=== PATIENT | male | born 1945 | race Caucasian/White ===

== ENCOUNTER 2018-02-11 12:53 | Day surgery (SDC) | payer MEDICARE, OTHER, SELFPAY ==
[2018-02-01 15:29] VITALS: BMI 37.3
[2018-02-11] VITALS (9 sets, daily range): BP systolic 98–129; BP diastolic 62–82; PULSE 59–70; RESP 12–18; TEMP 36.1–36.3; O2SAT 92–98; BMI 35.9
[2018-02-11] MEDS: LACTATED RINGERS 1,000 ML 42 ML IV (13:39)
[2018-02-11] MEDS: CEFAZOLIN 2 GM/100 ML FROZ.PIGGY IV (14:00)
--- NOTE | 2018-02-11 14:12 | PM.PREOP ---
Pre-operative Note Interval Note Pre-op Check: Yes History & Physical Reviewed by Physician Changes: No
--- NOTE | 2018-02-11 14:31 | SUR.OPER ---
Supine on padded OR bed, head on pillow, arms secured on padded arm boards at <90 degrees abduction, legs uncrossed, safety belt at thigh, tape over blanket over lower legs.
[2018-02-11] MEDS: LIDOCAINE 1% W/EPI INJ 20 ML INJ (14:42)
[2018-02-11] MEDS: BUPIVACAINE 0.5% (PF) VIAL 30 ML INJ (14:44)
--- NOTE | 2018-02-11 15:12 | PM.OP.1 ---
Operative Date/Time/Diagnoses Date of procedure: 02/11/18 Time of procedure: 15:12 Pre-op diagnosis: Ventral hernia Post-op diagnosis: same Procedure & Clinicians Procedure: Ventral hernia repair with C-qur mesh implant Same procedure as scheduled: Yes Indications: Enlarging and painful ventral hernia. Surgeon: Haritha Alexandra Click Yes if Unassisted: Yes Anesthesia Type: General (Kotlarczyk) Operative Notes Findings: Three 1 cm fascial defect in a 5 x 4 cm area of ventral fascia beginning at the level of the umbilicus Closure Type: primary Specimen(s): none sent Implants & Drains: 8 cm C cur mesh implant Estimated Blood Loss (mL): 5 Blood products transfused: none Procedure in detail: After obtaining informed consent, the patient brought to the operating room and placed in supine position on the operating table. Following successful induction of general endotracheal anesthesia, appropriate padding of all bony prominences, and placement of appropriate monitors, the abdomen is prepped and draped in the standard surgical fashion. A time-out was held per [facility] protocol. Following infiltration with local anesthetic to create a field block, an incision was created superior to the umbilicus and carried down through the skin and subcutaneous tissue. We immediately encountered a hernia sac. This was carefully dissected free from surrounding structures and the opening into the fascia was identified. Palpation of this defect revealed a 2nd defect superiorly and to the right lateral side and a 3rd defect inferiorly in relationship to the central defect. All 3 defects were approximately 1/2 to 1 cm in greatest dimension. All the edges of the defects were defined. The preperitoneal fat was dissected off of the surface of the abdominal wall. We elected to repair the defect with a single 8 cm piece of C cur mesh. This was dipped in Ancef solution and deployed into the abdominal defect. It was sewn in 4 areas and tabs trimmed appropriately. Mesh was carefully checked to be sure it was lying flat and in the preperitoneal space. The wound was then checked for hemostasis and irrigated with warm saline solution. It was aspirated free of all fluid and particulate matter. The skin defect was then closed in 3 layers with Vicryl and Monocryl suture. All sponge, needle, and instrument counts were correct at the conclusion of the case. The patient was allowed to wake from anesthesia without difficulty and taken to the post anesthesia care unit in good condition. Complications: none Condition: stable Disposition: PACU Plan for aftercare: 1. Discharge to home 2. Follow up with me in 2 weeks
[2018-02-11] MEDS: OXYCODONE IR 5 MG TABLET PO (15:44)
--- NOTE | 2018-02-11 16:52 | SUR.PHASEII ---
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
== END 2018-02-11 16:40 | disposition home or self-care (01) ==
PROVIDERS: PCP Physician Assistant; Visit Provider Surgery
PROC: (CPT 49560; principal; 2018-02-11 14:15)
DX: K43.9 Ventral hernia without obstruction or gangrene (principal)
CPT/HCPCS: 49560; 49568; C1781; J0690; J1100; J2405; J2704; J3010

== ENCOUNTER → 2018-03-20 08:34 | Outpatient (CLI) | payer MEDICARE, OTHER, SELFPAY | PROVIDERS: PCP Physician Assistant; Visit Provider Physician Assistant | DX: N30.01 Acute cystitis with hematuria (principal) | CPT/HCPCS: 87077; 87086; 87186 ==

== ENCOUNTER → 2018-04-12 07:35 | Outpatient (CLI) | payer MEDICARE, OTHER, SELFPAY ==
[2018-04-12 08:33] LABS: Alanine Aminotransferase 25 IU/L (21-72); Albumin Globulin Ratio 1.2 (1.0-2.8); Alkaline Phosphatase 66 U/L (38-126); Aspartate Aminotransferase 25 IU/L (17-59); BUN Creatinine Ratio 17.8 (6-22); Bilirubin Total 0.6 mg/dL (0.2-1.3); Blood Urea Nitrogen 16 mg/dL (9-20); Calcium 9.1 mg/dL (8.4-10.2); Carbon Dioxide 29 mmol/L (22-32); Chloride 105 mmol/L (98-107); Cholesterol 194 mg/dL (140-199); Estimated Glomerular Filt Rate > 60.0 mL/min (>60); Globulin 3.3 g/dL (1.7-4.1); Glucose 105 mg/dL (80-110); HDL Cholesterol 50 mg/dL (40-60); HEMOLYSIS < 15 (0-50); LDL Cholesterol Calculated 131 mg/dL (<100); Potassium 4.4 mmol/L (3.4-5.1); Sodium 143 mmol/L (137-145); Total Protein 7.3 g/dL (6.3-8.2); Triglycerides 67 mg/dL (35-150)
[2018-04-12 08:38] LABS: Creatinine Urine Random 194.5 mg/dL
[2018-04-12 08:43] LABS: Microalbumi Creatinin Ratio Ur 12.8 ug/mg CR (<30); Microalbumin Urine Random 2.5 mg/dL (0-1.6)
== END ==
PROVIDERS: PCP Physician Assistant; Visit Provider Physician Assistant
DX: E78.5 Hyperlipidemia, unspecified (principal); I10 Essential (primary) hypertension; N39.0 Urinary tract infection, site not specified
CPT/HCPCS: 36415; 80053; 80061; 82043; 82570; 87077; 87086; 87186

== ENCOUNTER → 2018-06-29 14:39 | Outpatient (CLI) | payer MEDICARE, OTHER, SELFPAY ==
[2018-06-29 15:32] LABS: Uric Acid 7.8 mg/dL (3.5-8.5)
== END ==
PROVIDERS: PCP Physician Assistant; Visit Provider Physician Assistant
DX: M10.9 Gout, unspecified (principal)
CPT/HCPCS: 36415; 84550

== ENCOUNTER → 2018-08-29 10:36 | Outpatient (CLI) | payer MEDICARE, OTHER, SELFPAY ==
--- NOTE | 2018-08-29 10:45 | DI.RAD.S_ITS ---
PROCEDURE: XR WRIST LT MIN 3V INDICATIONS: R/O scaphoid or other carpal Fx TECHNIQUE: 3 views of the wrist were acquired. COMPARISON: [facility], , WRIST MINIMUM 3 VIEWS LEFT, 01/18/2017, 9:28. FINDINGS: Bones: No fractures or dislocations. There is mild degeneration of the distal radioulnar joint and 1st carpometacarpal joint. No suspicious bony lesions. Soft tissues: There is chondrocalcinosis demonstrated in the triangular fibrocartilage complex. IMPRESSION: 1. No fracture or dislocation. 2. Mild osteoarthritic changes as described. 3. 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 Dictated by: Suresh Ge M.D. on 08/29/2018 at 11:50 Approved by: Suresh Ge M.D. on 08/29/2018 at 11:50
== END ==
PROVIDERS: PCP Physician Assistant; Visit Provider Physician Assistant
DX: M25.532 Pain in left wrist (principal); M18.12 Unilateral primary osteoarthritis of first carpometacarpal joint, left hand; M19.032 Primary osteoarthritis, left wrist; M11.232 Other chondrocalcinosis, left wrist
CPT/HCPCS: 73110

== ENCOUNTER → 2018-09-09 09:54 | Outpatient (CLI) | payer MEDICARE, OTHER, SELFPAY ==
[2018-09-09 10:09] LABS: Bacteria Urine None Seen; WBC Urine None Seen (0-5/HPF)
[2018-09-09 10:48] LABS: Appearance Urine UA CLEAR; Bilirubin Urine UA NEGATIVE (NEGATIVE); Color Urine UA YELLOW; Glucose Urine UA NEGATIVE (Negative); Ketones Urine UA NEGATIVE (NEGATIVE); Leukocyte Esterase Urine UA NEGATIVE (NEGATIVE); Nitrite Urine UA NEGATIVE (Negative); Occult Blood Urine UA TRACE-INTACT (Negative); Protein Urine UA NEGATIVE (Negative); Urobilinogen Urine UA 0.2 E.U./dL (0.2); pH Urine UA 6.5 (4.5-8.0)
[2018-09-09 10:55] LABS: Culture Indicated Urine Cult Not Indicated; Mucus Urine 1+ (Negative); RBC Urine 0-1/HPF (0-5/HPF); Squamous Epithelial Cell Urine 0-1 /HPF
[2018-09-09 11:07] LABS: Add Manual Diff / Slide Review NO; Basophils Absolute Auto 0 /uL (0-100); Basophils Percent Auto 0.6 % (0-2); Eosinophils Absolute Auto 100 /uL (0-450); Eosinophils Percent Auto 1.1 % (2-4); Hematocrit 46.8 % (41-53); Hemoglobin 15.9 g/dL (13.5-17.5); Lymphocytes Absolute Auto 2100 /uL (1100-4500); Lymphocytes Percent Auto 33.8 % (25-40); Mean Corpuscular Hemoglobin 29.8 PG (26-34); Mean Corpuscular Volume 87.8 fL (80-100); Monocytes Absolute Auto 500 /uL (0-900); Monocytes Percent Auto 8.1 % (3-14); Neutrophils Absolute Auto 3500 /uL (1500-7000); Neutrophils Percent Auto 56.4 % (50-75); Platelet Count 186 X10^3/uL (150-400); Red Blood Cell Count 5.33 X10^6/uL (4.5-5.9); Red Cell Distribution Width 13.6 % (11.6-14.8); White Blood Cell Count 6.2 X10^3/uL (4.5-11.0)
[2018-09-09 11:22] LABS: Prothrombin Time 11.7 SECONDS (10.1-12.7)
[2018-09-09 11:35] LABS: Alanine Aminotransferase 36 IU/L (21-72); Albumin 4.4 g/dL (3.5-5.0); Albumin Globulin Ratio 1.3 (1.0-2.8); Alkaline Phosphatase 63 U/L (38-126); Aspartate Aminotransferase 31 IU/L (17-59); Bilirubin Total 0.6 mg/dL (0.2-1.3); Blood Urea Nitrogen 17 mg/dL (9-20); Calcium 9.5 mg/dL (8.4-10.2); Carbon Dioxide 30 mmol/L (22-32); Chloride 102 mmol/L (98-107); Estimated Glomerular Filt Rate > 60.0 mL/min (>60); Globulin 3.3 g/dL (1.7-4.1); Glucose 83 mg/dL (80-110); HEMOLYSIS < 15 (0-50); Potassium 4.4 mmol/L (3.4-5.1); Sodium 140 mmol/L (137-145); Total Protein 7.7 g/dL (6.3-8.2)
== END ==
PROVIDERS: PCP Physician Assistant; Visit Provider Physician Assistant
DX: Z01.818 Encounter for other preprocedural examination (principal)
CPT/HCPCS: 36415; 80053; 81001; 85025; 85610; 93005; 93010

== ENCOUNTER → 2020-11-20 08:36 | Outpatient (CLI) | payer MEDICARE, SELFPAY ==
[2020-11-20 09:54] LABS: Add Manual Diff / Slide Review NO; Basophils Absolute Auto 100 /uL (0-100); Basophils Percent Auto 0.9 % (0-2); Eosinophils Absolute Auto 200 /uL (0-450); Eosinophils Percent Auto 2.2 % (2-4); Hematocrit 43.1 % (41-53); Lymphocytes Absolute Auto 1900 /uL (1100-4500); Lymphocytes Percent Auto 26.3 % (25-40); Mean Corpuscular HGB Conc 34.8 % (30-36); Mean Corpuscular Volume 86.2 fL (80-100); Monocytes Absolute Auto 500 /uL (0-900); Monocytes Percent Auto 7.4 % (3-14); Neutrophils Absolute Auto 4500 /uL (1500-7000); Neutrophils Percent Auto 63.2 % (50-75); Platelet Count 168 X10^3/uL (150-400); Red Cell Distribution Width 13.7 % (11.6-14.8); White Blood Cell Count 7.1 X10^3/uL (4.5-11.0)
[2020-11-20 10:29] LABS: Alanine Aminotransferase 22 IU/L (<50); Albumin 4.2 g/dL (3.5-5.0); Albumin Globulin Ratio 1.3 (1.0-2.8); Alkaline Phosphatase 68 U/L (38-126); Aspartate Aminotransferase 32 IU/L (17-59); BUN Creatinine Ratio 18.1 (6-22); Bilirubin Total 0.4 mg/dL (0.2-1.3); Blood Urea Nitrogen 17 mg/dL (9-20); Calcium 9.4 mg/dL (8.4-10.2); Carbon Dioxide 28 mmol/L (22-32); Chloride 104 mmol/L (98-107); Cholesterol 205 mg/dL (140-199); Estimated Glomerular Filt Rate > 60.0 mL/min (>60); Globulin 3.2 g/dL (1.7-4.1); Glucose 91 mg/dL (80-110); HDL Cholesterol 56 mg/dL (40-60); HEMOLYSIS < 15 (0-50); LDL Cholesterol Calculated 132 mg/dL (<100); Potassium 4.4 mmol/L (3.4-5.1); Sodium 138 mmol/L (137-145); Total Protein 7.4 g/dL (6.3-8.2); Triglycerides 83 mg/dL (35-150)
== END ==
PROVIDERS: PCP Family Medicine; Referring Provider Family Medicine; Visit Provider Family Medicine
DX: E78.5 Hyperlipidemia, unspecified (principal); I10 Essential (primary) hypertension; J34.0 Abscess, furuncle and carbuncle of nose; R23.8 Other skin changes
CPT/HCPCS: 36415; 80053; 80061; 85025

== ENCOUNTER → 2021-11-02 09:26 | Outpatient (CLI) | payer MEDICARE, SELFPAY | PROVIDERS: PCP Family Medicine; Visit Provider Nurse Practitioner Family | DX: R39.15 Urgency of urination (principal) | CPT/HCPCS: 87077; 87086; 87186 ==

== ENCOUNTER → 2021-12-04 13:09 | Outpatient (CLI) | payer MEDICARE, OTHER, SELFPAY | PROVIDERS: PCP Family Medicine; Visit Provider Physician Assistant | DX: N39.0 Urinary tract infection, site not specified (principal) | CPT/HCPCS: 87077; 87086; 87186 ==

== ENCOUNTER → 2024-05-04 12:19 | Outpatient (CLI) | payer MEDICARE, OTHER, SELFPAY ==
--- NOTE | 2024-05-04 12:22 | DI.RAD.S_ITS ---
PROCEDURE: XR FOOT LT MIN 3V INDICATIONS: FOOT PAIN TECHNIQUE: 3 views of the foot were acquired. COMPARISON: None. FINDINGS: On the lateral image, extensive heterogeneous calcifications extending anteriorly from the inferior base of the calcaneus measuring up to 4 cm AP by 1 cm cc, which may be an indication of plantar fasciitis. Moderate degenerative changes of the tibiotalar, and to a lesser degree talonavicular, calcaneocuboid, tarsal-metatarsal and 1st metatarsophalangeal joints with joint space narrowing and osteophytes. Mild nonspecific soft tissue swelling lateral to the left 5th metatarsophalangeal joint. No radiographic evidence of displaced fracture, dislocation or high attenuation soft tissue foreign body. IMPRESSION: Calcifications inferior calcaneus may be an indication of plantar fasciitis. Moderate degenerative changes. Mild nonspecific soft tissue swelling lateral to the 5th metatarsophalangeal joint. Dictated by: Kirk Lucas M.D. on 05/07/2024 at 8:40 Approved by: Kirk Lucas M.D. on 05/07/2024 at 8:51
== END ==
LOC: RAD 12:21
PROVIDERS: PCP Physician Assistant; Referring Provider Physician Assistant; Visit Provider Physician Assistant
DX: M79.672 Pain in left foot (principal); M79.89 Other specified soft tissue disorders
CPT/HCPCS: 73630